=== PATIENT | male | born 1980 | race Caucasian/White ===

== ENCOUNTER 2018-12-04 14:18 | Emergency (ER) | payer MEDICAID ==
[~2018-12-04] VITALS: Ht 175.3 cm; Wt 83.9 kg
[~2018-12-04 14:18] MED LIST: CETI10CA PO; FLUO10CA13 PO; GABA300C10; HYDR1TAB13 PO; IBUP-1623 PO
[2018-12-04 14:28] VITALS: BP 148/86
[2018-12-04] MEDS ORDERED: DIPH,PERTUSS(ACELL),TET VAC/PF 0.5 ML IM-VACC ONE ×2 (15:00→15:20)
[2018-12-04] MEDS ORDERED: LIDOCAINE-MPF 1%, 5ML INFIL ONE (15:30)
[2018-12-04] MEDS ORDERED: LIDOCAINE-MPF 1%, 5ML ONE (15:35)
[2018-12-04] MEDS ORDERED: BACITRACIN ZINC OINT 500U/GM, 0.9 GM ONE (15:35)
[2018-12-04] MEDS ORDERED: KETOROLAC 30 MG/1 ML IM ONE (16:30)
[2018-12-04] MEDS ORDERED: CLINDAMYCIN 300 MG CAPSULE PO ONE (16:30)
[2018-12-04] MEDS ORDERED: KETOROLAC 30 MG/1 ML ONE (17:00)
[2018-12-04] MEDS ORDERED: CLINDAMYCIN 150 MG CAPSULE PO ONE (17:00)
[2018-12-04] MEDS ORDERED: CLINDAMYCIN 300 MG CAPSULE ONE (17:01)
--- NOTE | 2018-12-04 17:17 | NUR ---
Patient/Caregiver given discharge instructions and they have confirmed that they understand the instructions. Patient ambulatory with steady gait with cane.
== END 2018-12-04 17:18 | disposition home or self-care (01) ==
LOC: ED 17:12
DX: S50.312A Abrasion of left elbow, initial encounter (principal); S50.812A Abrasion of left forearm, initial encounter; S70.212A Abrasion, left hip, initial encounter; S90.512A Abrasion, left ankle, initial encounter; S80.812A Abrasion, left lower leg, initial encounter; S96.992A Other specified injury of unspecified muscle and tendon at ankle and foot level, left foot, initial encounter; G89.11 Acute pain due to trauma; K21.9 Gastro-esophageal reflux disease without esophagitis; F32.9 Major depressive disorder, single episode, unspecified; V27.4XXA Motorcycle driver injured in collision with fixed or stationary object in traffic accident, initial encounter; Y93.89 Activity, other specified; Y92.89 Other specified places as the place of occurrence of the external cause; Y99.8 Other external cause status
CPT/HCPCS: 73502; 73610; 90471; 90715; 96372; 99283; J1885

== ENCOUNTER 2018-12-06 13:08 | Emergency (ER) | payer MEDICAID, OTHER ==
[~2018-12-06] VITALS: Ht 175.3 cm; Wt 84.0 kg
[2018-12-06 14:12] LABS: ANION GAP 4 mmol/L (5-15); CALCIUM 9.1 mg/dL (8.5-10.1); CHLORIDE 108 mmol/L (98-107); CREATININE 0.97 mg/dL (0.7-1.3)
[2018-12-06 14:14] LABS: BASOPHILS # (AUTO) 0.04 x10^3/uL (0-0.1); BASOPHILS % (AUTO) 0 % (0-1); EOSINOPHILS % (AUTO) 1 % (1-7); LYMPHOCYTES % (AUTO) 12 % (22-44); MD NO; MEAN CORPUSCULAR HEMOGLOBIN 30.4 pg (27.5-34.5); MEAN CORPUSCULAR HGB CONC 32.9 g/dL (33.2-36.2); MEAN CORPUSCULAR VOLUME 92.3 fL (81-97); MEAN PLATELET VOLUME 7.3 fL (7.4-10.4); MONOCYTES # (AUTO) 0.88 x10^3/uL (0.2-0.8); MONOCYTES % (AUTO) 8 % (2-9); NEUTROPHILS # (AUTO) 8.24 x10^3/uL (1.8-6.8); NEUTROPHILS % (AUTO) 79 % (42-75); PLATELET COUNT 342 x10^3/uL (130-400); RED BLOOD COUNT 4.85 x10^6/uL (4.38-5.82)
--- NOTE | 2018-12-06 15:07 | NUR ---
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
[2018-12-06 16:19] LABS: HCT (SEDRATE) 44.8 % (39.2-51.8)
[2018-12-06] MEDS ORDERED: HYDROcodone/APAP 5/325 TABLET PO ONE (16:30)
[2018-12-06] MEDS ORDERED: HYDROcodone/APAP 5/325 TABLET ONE (16:33)
--- NOTE | 2018-12-06 16:35 | NUR ---
PT TAKEN TO CT SCAN
--- NOTE | 2018-12-06 16:47 | NUR ---
PT BACK FROM CT AND PT GIVEN PAIN MEDICATIONS.
[2018-12-06] MEDS ORDERED: LIDOCAINE-MPF 1%, 5ML ONE ×2 (17:15→17:42)
[2018-12-06] MEDS ORDERED: LIDOCAINE 1%, 10ML INFIL ONE (17:30)
--- NOTE | 2018-12-06 18:09 | NUR ---
pa at bedside cleaning left ankle
[2018-12-06 18:31] VITALS: BP 132/78
--- NOTE | 2018-12-06 18:45 | NUR ---
LEFT DRESSING APPLIED TO ANKLE. XEROFORM PLACED ON WOUND, 4X4 APPLIED, WOUND WRAPPED WITH GAUZE.
--- NOTE | 2018-12-06 18:52 | NUR ---
REPORT GIVEN TO JEAN MCKEON
--- NOTE | 2018-12-06 18:54 | NUR ---
REPORT FROM CAMI ASSUMED CARE OF PT
== END 2018-12-06 19:04 | disposition home or self-care (01) ==
LOC: ED 17:27
DX: S50.812A Abrasion of left forearm, initial encounter (principal); S50.811A Abrasion of right forearm, initial encounter; S80.812A Abrasion, left lower leg, initial encounter; L03.116 Cellulitis of left lower limb; K21.9 Gastro-esophageal reflux disease without esophagitis; F17.200 Nicotine dependence, unspecified, uncomplicated; V87.8XXA Person injured in other specified noncollision transport accidents involving motor vehicle (traffic), initial encounter; Y93.89 Activity, other specified; Y92.410 Unspecified street and highway as the place of occurrence of the external cause; Y99.8 Other external cause status
CPT/HCPCS: 11043; 36415; 73700; 80048; 85025; 85651; 86140; 99285; J3490; 99284

== ENCOUNTER 2018-12-07 17:11 | Emergency (ER) | payer MEDICAID, OTHER ==
[~2018-12-07] VITALS: Ht 175.3 cm; Wt 82.6 kg
[2018-12-07 17:15] VITALS: BP 124/88
== END 2018-12-07 17:47 | disposition home or self-care (01) ==
LOC: ED 17:37
DX: L03.116 Cellulitis of left lower limb (principal); K21.9 Gastro-esophageal reflux disease without esophagitis
CPT/HCPCS: 99283

== ENCOUNTER 2019-01-02 13:29 | Emergency (ER) | payer MEDICAID, OTHER ==
[~2019-01-02] VITALS: Ht 175.3 cm; Wt 78.9 kg
--- NOTE | 2019-01-02 14:48 | NUR ---
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
[2019-01-02] MEDS ORDERED: HYDROcodone/APAP 5/325 TABLET ONE (15:23)
--- NOTE | 2019-01-02 15:27 | NUR ---
Pt medicated per ROZINA for L ankle pain rated 10/10 only with movement. Pt denies other needs. No blood cultures needed per Dr. Jovel.
[2019-01-02] MEDS ORDERED: HYDROcodone/APAP 5/325 TABLET PO ONE (15:30)
[2019-01-02] MEDS ORDERED: SODIUM CHLORIDE FLUSH 10ML SYR IVF ONE (15:30)
[2019-01-02] MEDS ORDERED: VANCOMYCIN 1,600 MG in SODIUM CHLORIDE 0.9% 250 ML IV ONE (15:30)
[2019-01-02] MEDS ORDERED: VANCOMYCIN PER PHARMACY IV ONE (15:30)
[2019-01-02 15:50] LABS: BASOPHILS # (AUTO) 0.02 x10^3/uL (0-0.1); BASOPHILS % (AUTO) 0 % (0-1); EOSINOPHILS # (AUTO) 0.08 x10^3/uL (0-0.4); EOSINOPHILS % (AUTO) 1 % (1-7); LYMPHOCYTES # (AUTO) 1.65 x10^3/uL (1-3.4); LYMPHOCYTES % (AUTO) 19 % (22-44); MD NO; MEAN CORPUSCULAR HEMOGLOBIN 30.8 pg (27.5-34.5); MEAN CORPUSCULAR HGB CONC 33.7 g/dL (33.2-36.2); MEAN CORPUSCULAR VOLUME 91.4 fL (81-97); MEAN PLATELET VOLUME 7.3 fL (7.4-10.4); MONOCYTES # (AUTO) 0.82 x10^3/uL (0.2-0.8); MONOCYTES % (AUTO) 9 % (2-9); NEUTROPHILS # (AUTO) 6.22 x10^3/uL (1.8-6.8); NEUTROPHILS % (AUTO) 71 % (42-75); PLATELET COUNT 279 x10^3/uL (130-400); RED CELL DISTRIBUTION WIDTH 13.6 % (9.4-14.8)
[2019-01-02 15:56] LABS: ANION GAP 5 mmol/L (5-15); CALCIUM 9.1 mg/dL (8.5-10.1); CHLORIDE 107 mmol/L (98-107); CREATININE 1.03 mg/dL (0.7-1.3)
[2019-01-02] MEDS ORDERED: VANCOMYCIN 1,800 MG in SODIUM CHLORIDE 0.9% 250 ML IV ONE (16:00)
[2019-01-02 16:21] LABS: HCT (SEDRATE) 44.8 % (39.2-51.8)
[2019-01-02] MEDS ORDERED: SULFAMETH./TRIMETHOPRIM DS 800MG/160MG TABLET PO ONE (17:00)
[2019-01-02] MEDS ORDERED: CEPHALEXIN 500 MG CAPSULE PO ONE (17:00)
--- NOTE | 2019-01-02 17:29 | NUR ---
IV ABX INFUSING WITHOUT S/S OF ADVERSE REACTION. WOUND WITH DRESSING INTACT.
--- NOTE | 2019-01-02 18:44 | NUR ---
PT REPORT FROM LINDA PERRY. PT CARE TO BE ASSUMED.
--- NOTE | 2019-01-02 18:47 | NUR ---
VANCOMYCIN INFUSING AT 3ML/HR VIA PUMP; IV SITE 20G LAC PATENT. EMAR REVIEWED, WILL REVIEW RATE W/ PRIOR RN.
[2019-01-02 19:03] VITALS: BP 133/89
== END 2019-01-02 19:04 | disposition home or self-care (01) ==
LOC: ED 15:52
DX: L03.116 Cellulitis of left lower limb (principal); F17.200 Nicotine dependence, unspecified, uncomplicated
CPT/HCPCS: 36415; 73610; 80048; 82040; 85025; 85651; 96365; 96366; 99284; J3370; J7050

== ENCOUNTER 2020-03-12 16:49 | Emergency (ER) | payer MEDICAID, OTHER ==
[~2020-03-12] VITALS: Ht 175.3 cm; Wt 78.4 kg
[2020-03-12] MEDS ORDERED: LIDOCAINE 1%-EPI 1:100K, 50ML INFIL ONE (17:00)
[2020-03-12] MEDS ORDERED: LIDOCAINE 1%-EPI 1:100K, 20ML ONE (17:08)
[2020-03-12] MEDS ORDERED: NEOSPORIN OINT. PKT 1 PACKET ONE (17:40)
[2020-03-12] MEDS ORDERED: ONDANSETRON ODT 4 MG ONE (17:52)
[2020-03-12] MEDS ORDERED: ONDANSETRON ODT 4 MG PO ONE (18:00)
[2020-03-12 18:43] VITALS: BP 129/70
--- NOTE | 2020-03-12 18:43 | NUR ---
PT D/C'D PER ORDERS.
== END 2020-03-12 18:45 | disposition home or self-care (01) ==
LOC: ED 18:32
DX: S61.411A Laceration without foreign body of right hand, initial encounter (principal); K21.9 Gastro-esophageal reflux disease without esophagitis; Z87.891 Personal history of nicotine dependence; W25.XXXA Contact with sharp glass, initial encounter; Y93.89 Activity, other specified; Y92.009 Unspecified place in unspecified non-institutional (private) residence as the place of occurrence of the external cause; Y99.8 Other external cause status
CPT/HCPCS: 12042; 99284; J3490; Q0162